=== PATIENT | female | born 1945 | race Caucasian/White ===

== ENCOUNTER → 2016-06-02 | Outpatient (CLI) | payer MEDICARE, BC ==
[~2016-06-02] MED LIST: ALLEGRA180 MG PO; GLUCOSAMINE/CHONDROI PO; NORCO 325 MG-51 TAB PO; SYNTHROID0.05 MG PO; ZOCOR 40MG40 MG PO; ZYRTEC ALLERGY10 MG PO
== END ==
LOC: MC.RAD 09:22
DX: D05.82 Other specified type of carcinoma in situ of left breast (principal)

== ENCOUNTER → 2016-10-10 | Outpatient (CLI) | payer MEDICARE, BC | LOC: MC.RAD 10:36 | DX: Z12.31 Encounter for screening mammogram for malignant neoplasm of breast (principal); N64.89 Other specified disorders of breast ==

== ENCOUNTER → 2016-10-13 | Outpatient (CLI) | payer MEDICARE, BC | LOC: MC.RAD 09:28 | DX: N64.89 Other specified disorders of breast (principal) ==

== ENCOUNTER → 2017-04-16 | Outpatient (CLI) | payer MEDICARE, BC | LOC: MC.RAD 07:30 | DX: R92.8 Other abnormal and inconclusive findings on diagnostic imaging of breast (principal); Z98.890 Other specified postprocedural states ==

== ENCOUNTER → 2017-10-25 | Outpatient (CLI) | payer MEDICARE, BC | LOC: MC.RAD 08:32 | DX: Z12.31 Encounter for screening mammogram for malignant neoplasm of breast (principal) ==

== ENCOUNTER → 2017-11-13 | Outpatient (CLI) | payer MEDICARE, BC | LOC: MC.RAD 12:57 | DX: N63.22 Unspecified lump in the left breast, upper inner quadrant (principal) ==

== ENCOUNTER 2018-02-08 06:28 | Day surgery (SDC) | payer MEDICARE, BC ==
[~2018-02-08] VITALS: Ht 160 cm; Wt 60.9 kg
[2018-02-08] VITALS (12 sets, daily range): BP systolic 109–135; BP diastolic 60–73; PULSE 54–92; TEMP 97.7–98.8
[~2018-02-08 06:28] MED LIST changes: +SYNTHROID0.075 MG/T PO
[2018-02-08] MEDS ORDERED: PROBIOTIC FORMU1 CAP PO (07:23)
[2018-02-08] MEDS ORDERED: TURMERIC500 MG PO (07:23)
[2018-02-09 03:43] VITALS: BP 141/75; PULSE 80; TEMP 97.9
[2018-02-09 09:03] VITALS: BP 131/69; PULSE 89; TEMP 97.7
[2018-02-09] MEDS ORDERED: NORCO 325 MG-51 TAB PO (10:55)
== END 2018-02-09 11:45 | disposition home or self-care (01) ==
LOC: SDCO 06:28 → SURG 11:00 → SDCO 02-09 11:45
DX: C50.212 Malignant neoplasm of upper-inner quadrant of left female breast (principal); C77.3 Secondary and unspecified malignant neoplasm of axilla and upper limb lymph nodes; Z17.0 Estrogen receptor positive status [ER+]; E03.9 Hypothyroidism, unspecified; Z79.899 Other long term (current) drug therapy; Z79.82 Long term (current) use of aspirin
CPT/HCPCS: OP; J0690; J1100; J1885; J2250; J2405; J2704; J2795; J3010; J7120

== ENCOUNTER 2018-04-10 12:17 | Outpatient (RCR) | payer MEDICARE, BC ==
[~2018-04-10 12:17] MED LIST changes: +PROBIOTIC FORMU1 CAP PO; +TURMERIC500 MG PO
== END 2018-07-09 | disposition home or self-care (01) ==
LOC: MKS.ESL.PT
DX: I97.2 Postmastectomy lymphedema syndrome (principal); Z85.3 Personal history of malignant neoplasm of breast; Z90.12 Acquired absence of left breast and nipple; Z92.3 Personal history of irradiation
CPT/HCPCS: G8990-GP; G8991-GP

== ENCOUNTER → 2018-11-14 | Outpatient (CLI) | payer MEDICARE, BC | LOC: MC.RAD 09:20 | DX: Z12.31 Encounter for screening mammogram for malignant neoplasm of breast (principal); N64.89 Other specified disorders of breast ==

== ENCOUNTER 2019-09-12 10:00 | Outpatient (RCR) | payer MEDICARE, BC | END 2019-11-27 | disposition still patient (30) | LOC: MKS.ESL.PT | DX: M25.512 Pain in left shoulder (principal) ==

== ENCOUNTER → 2019-11-25 | Outpatient (CLI) | payer MEDICARE, BC | LOC: MC.RAD 15:51 | DX: Z12.31 Encounter for screening mammogram for malignant neoplasm of breast (principal) ==

== ENCOUNTER → 2020-12-06 | Outpatient (CLI) | payer MEDICARE, BC | LOC: MC.RAD 14:13 | DX: Z12.31 Encounter for screening mammogram for malignant neoplasm of breast (principal) ==

== ENCOUNTER 2021-04-24 11:29 | Emergency (ER) | payer MEDICARE, BC ==
[~2021-04-24] VITALS: Ht 162.6 cm; Wt 61.4 kg
[2021-04-24 11:31] VITALS: TEMP 98.1
[2021-04-24] MEDS ORDERED: ARIMIDEX1 MG PO (11:54)
[2021-04-24 11:55] LABS: MEAN CELL VOLUME 91 fl (80.0-100.0); MEAN CORPUSCULAR HGB CONC 34 g/dl (33.0-37.0); MEAN PLATELET VOLUME 11.6 fl (7.4-10.4); PLATELET COUNT 117 K/mm3 (130-400); RED BLOOD COUNT 2.99 M/mm3 (4.10-5.30); REDCELL DISTRIBUTION WIDTH-CV 14.8 % (11.5-14.5)
[2021-04-24] MEDS ORDERED: CELEBREX 200MG200 MG PO (11:55)
[2021-04-24 11:56] LABS: HEMATOCRIT 27.2 % (37.0-47.0); HEMOGLOBIN 9.1 g/dl (12.5-16.0); MEAN CORPUSCULAR HEMOGLOBIN 30 pg (27-31)
[2021-04-24] MEDS ORDERED: ASPIRIN 81M81 MG/TA2 PO (11:56)
[2021-04-24] MEDS ORDERED: CRESTOR5 MG PO (11:56)
[2021-04-24 12:23] LABS: COLLECTION METHOD CLEAN CATCH
[2021-04-24 12:28] LABS: ALBUMIN 3.2 gm/dL (3.4-4.8); BILIRUBIN,TOTAL 0.7 mg/dL (0.2-1.2); C-REACTIVE PROTEIN 12.26 mg/dL (0.00-0.50); CALCIUM 8.7 mg/dL (8.4-10.2); CREATININE, serum 0.79 mg/dL (0.57-1.11); POTASSIUM 4.1 mmol/L (3.5-4.5); TOTAL PROTEIN 6.6 gm/dL (6.2-8.1)
[2021-04-24 12:36] LABS: MUCOUS Present (NOT PRESENT); SQUAMOUS EPITHELIAL 0-2 /hpf (0-10); URINE BACTERIA None Seen /hpf (NONE SEEN)
[2021-04-24 12:37] LABS: PH 7 (5-8); URINE APPEARANCE Clear (CLEAR/HAZY); URINE BILIRUBIN Negative (NEGATIVE); URINE BLOOD Negative (NEGATIVE); URINE COLOR Yellow (YELLOW); URINE GLUCOSE Negative (NEGATIVE); URINE KETONE Negative (NEGATIVE); URINE LEUKOCYTE ESTERASE Negative (NEGATIVE); URINE NITRATE Negative (NEGATIVE); URINE PROTEIN(semi-quant) Negative (NEGATIVE); URINE UROBILINOGEN Negative (NEGATIVE)
[2021-04-24 12:58] LABS: BAND 6 % (0-10); HYPOCHROMIA 1+; LYMPHOCYTE 9 % (20.0-51.0); NEUTROPHILS 77 % (42.0-75.2); PLATELET ESTIMATE NORMAL (NORMAL)
[2021-04-24 13:15] VITALS: BP 136/85; PULSE 92
== END 2021-04-24 13:25 | disposition home or self-care (01) ==
LOC: COL.ER 11:29
PROVIDERS: Family Medicine
DX: S00.93XA Contusion of unspecified part of head, initial encounter (principal); R55 Syncope and collapse; R11.10 Vomiting, unspecified; Z79.890 Hormone replacement therapy; E03.9 Hypothyroidism, unspecified; W19.XXXA Unspecified fall, initial encounter; W22.8XXA Striking against or struck by other objects, initial encounter
CPT/HCPCS: J7120